=== PATIENT | female | born 1930 | race Caucasian/White ===

== ENCOUNTER 2018-06-04 11:36 | Outpatient (CLI) | payer OTHER | END 2018-06-04 11:45 | disposition home or self-care (01) | LOC: LAB 11:36 | DX: J11.1 Influenza due to unidentified influenza virus with other respiratory manifestations (principal); J18.8 Other pneumonia, unspecified organism; J10.89 Influenza due to other identified influenza virus with other manifestations ==

== ENCOUNTER → 2019-01-22 07:47 | Outpatient (CLI) | payer OTHER | END | disposition home or self-care (01) | LOC: LAB 07:47 | DX: E78.49 Other hyperlipidemia (principal); R73.09 Other abnormal glucose; I10 Essential (primary) hypertension; G31.84 Mild cognitive impairment of uncertain or unknown etiology; R13.19 Other dysphagia ==